=== PATIENT | female | born 1930 | race Caucasian/White ===

== ENCOUNTER 2017-01-21 08:32 | Inpatient (IN) | payer OTHER, MEDICARE ==
[~2017-01-21] VITALS: Ht 165.1 cm; Wt 63.5 kg
[~2017-01-21 08:32] MED LIST: AMLODIPINE BESYL5 M1 PO; ASPIRIN EC81 M1 PO; AUGMENTIN 875-1 EACH PO; BYSTOLIC10 M1 PO; CARAFATE1 G1 PO; CRESTOR10 M1 PO; FERROUS SULFAT325 M1 PO; HYDRALAZINE10 MG PO; HYDRODIURIL 2525 MG PO; LISINOPRIL30 MG PO; LOSARTAN POTASS25 M1 PO; METOPROLOL TART50 M1 PO; NORVASC 10MG10 MG PO; OMEPRAZOLE20 M3 PO; OMEPRAZOLE40 M1 PO; OXYBUTYNIN CHLOR5 M2; PRANDIN PO; PRANDIN0.5 MG PO; REPAGLINIDE1 M1 PO; VITAMIN B-121000 MC3 PO; VITAMIN D31000 UNI2 PO
--- NOTE | 2017-01-21 08:41 | ED GI/GU/ABDOMINAL COMPLAINT ---
History of Present Illness General Chief Complaint: Abdominal Pain/Flank Pain Stated Complaint: ABD PAIN X 3DAYS Source: patient, family, old records Exam Limitations: no limitations Vital Signs & Intake/Output Vital Signs & Intake/Output Vital Signs Date Time Temp Pulse Resp B/P Pulse O2 O2 Flow FiO2 Ox Delivery Rate 01/21 1430 97.5 67 18 168/58 98 Room Air 01/21 1358 97.0 63 20 160/80 100 Room Air 01/21 1303 64 160/80 01/21 1240 54 20 180/80 01/21 1240 53 180/80 01/21 1157 96.4 66 20 190/90 100 Room Air 01/21 1133 190/90 01/21 1053 210/100 01/21 1030 97.0 59 20 210/100 01/21 1009 97.0 59 20 210/100 100 Room Air 01/21 0900 98 Room Air 01/21 0835 97.6 69 18 189/80 97 Room Air Allergies Coded Allergies: NO KNOWN ALLERGIES (08/25/16) Reconcile Medications Amlodipine Besylate 5 MG TABLET 1 TAB PO DAILY HEART (Reported) Losartan Potassium 25 MG TABLET 1 TAB PO DAILY HEART (Reported) Nebivolol HCl (Bystolic) 10 MG TABLET 1 TAB PO DAILY HEART (Reported) Omeprazole 40 MG CAPSULE.DR 1 TAB PO BID Stomach Ulcer Oxybutynin Chloride 5 MG TABLET 1 TAB PO BID bladder (Reported) Repaglinide 1 MG TABLET 1 TAB PO DAILY DM (Reported) Sucralfate (Carafate) 1 GRAM TABLET 1,000 MG PO 4 TIMES/DAY Stomach ulcer Please take one tablet 30 minutes after your breakfast, lunch and dinner. Take one tablet at bed time. You can Mix this tablet with 8 oz H2O and disolve. Triage Note: 86 Y/O FEMALE C/O MID ABDOMINAL/EPIGASTRIC PAIN SINCE SATURDAY. WAS ADMITTED APPROX 3 WEEKS GO FOR SAME BUT FAMILY UNSURE OF EXACT DIAGNOSIS; "SHE HAD A FOLLOW UP AND WAS FINE". PT DENIES N/V BUT REPORTS DECREASED APPETITE/PO INTAKE. STATES SHE HAS BEEN TAKING THE PRESCRIBED MEDICATIONS BUT "THEY ARENT HELPING". FAMILY STATES PT WAS DIAGNOSED WITH ULCER. PT STATES "THIS IS NOT AN ULCER". Triage Nurses Notes Reviewed? yes ? N Is pt currently ? No Onset: Gradual Duration: day(s): (3) Timing: recent history Quality/Severity: moderate Location: epigastric Radiation: back Activities at Onset: none Prior Abdominal Problems: similar symptoms Past Sexual History: Unobtainable at this time No Modifying Factors: none Modifying Factors: Worsens With: movement. Associated Symptoms: abdominal pain HPI: Patient is an 86-year-old female with history of peptic ulcer disease, diabetes presenting to the emergency department with chief complaint of epigastric pain as been constant for the past 3 days. She reports history of similar symptoms recently, was admitted to the hospital in October for the same, had an endoscopy which revealed inflammation. She was put on medications that seemed to help. She was doing well for a few weeks after discharge and then the son reports that she's been in pain since mid to late November. Pain progressively getting worse. Pain constant over the past 3 days. Denies any shortness of breath or chest pain. No palpitations. Pain is sharp and stabbing in nature and radiates to the back. Feels similar to pain she had at previous admission. Has been taking intermittent ibuprofen which does not help. No nausea or vomiting. Denies any diarrhea. No urinary frequency or urgency or dysuria. Denies fevers or chills. Nothing seems to make the pain better. (IVÁN GLYNN,FOREST) Past History Travel History Traveled to [place] past 21 day No Medical History Any Pertinent Medical History? see below for history Neurological: NONE EENT: NONE Cardiovascular: hypertension, PAD, post L fempop bypass 2014 at [facility] Respiratory: NONE (by CT (denies smoking)) Gastrointestinal: peptic ulcer disease, ONLY HAS 1/3 OF STOMACH chronic pancreatic cysts Hepatic: post CCKY Renal: chronic kidney disease Musculoskeletal: osteoporosis Psychiatric: anxiety, PTSD Endocrine: diabetes, osteoporosis, vitamin D deficiency Blood Disorders: anemia (MGUS) Cancer(s): NONE TACTICAL/MOBILE WATCH OFFICER/Reproductive: NONE History of MRSA: No History of VRE: No History of CDIFF: No Surgical History Surgical History: cholecystectomy (age 24- [place]), , age 23- partial gastrectomy for PUD in [place] (awake during procedure) 2014- Left fempop at [facility] RLQ exploration in [place] for "infx" (AP left intact) Psychosocial History Who do you live with Patient/Self Services at Home None What is your primary language Peruvian Tobacco Use: Never used Family History Family History, If Any: MOTHER (possibly TACTICAL/MOBILE WATCH OFFICER-related). , Age 46; Cause: Unknown cause of morbidity or mortality. FATHER (related to injuries from WWII.). , Age 57; Cause: Trauma. Hx Contributory? No (FOREST AMAYA) Review of Systems Review of Systems Constitutional: Reports: no symptoms. Comments Review of systems: See HPI, All other systems negative. Constitutional, no chills fever or weight loss HEENT: No visual changes no sore throat no congestion Cardiovascular: No chest pain ,palpitation , orthopnea or ankle swelling Skin, no jaundice no rashes Respiratory: No dyspnea cough sputum or hemoptysis GI: No nausea no vomiting : No dysuria No hematuria Muscle skeletal: no neck pain, Neurologic: No numbness no confusion NO HOGAN Psych: No stress anxiety or depression,. Heme/endocrine: No bruising no bleeding no polyuria or polydipsia Immunology: No splenectomy or history of AIDS (FOREST AMAYA) Physical Exam Physical Exam General Appearance: well developed/nourished, no apparent distress, alert, awake , uncomfortable Gastrointestinal: normal bowel sounds, guarding, tenderness, several old surgical scars noted Comments: Well-developed well-nourished person in no acute distress but appears uncomfortable HEENT: Pupils equally round and reactive to light and accommodation. Nose is atraumatic. Pharynx normal. No swelling or edema. Neck: NORMAL INSPECTION Back: Nontender, no CVA tenderness. Full range of motion Cardiovascular: Regular rate and rhythms no murmurs rubs or gallops, normal JVP Respiratory: Chest nontender. No respiratory distress.breath sounds clear to auscultation bilaterally Abdomen: Soft, TENDER TO PALPATION IN EPIGASTRIC REGION, R/L UPPER QUADRANTS, nondistended, no appreciable organomegaly. Normal bowel sounds. No ascites. Positive guarding in the epigastric and right upper quadrant area. Extremity: No edema Neuro: Alert oriented x3, CN 2- 12 INTACT Skin: No appreciable rash on exposed skin, skin is warm and dry. Psych: Mood and affect is normal, memory and judgment is normal. Core Measures ACS in differential dx? Yes Severe Sepsis Present: No Septic Shock Present: No (FOREST AMAYA) Progress Differential Diagnosis: gastritis, hepatitis, hernia, pancreatitis, sbo, HYPERTENSIVE URGENCY, MEDICATION NONCOMPLIANCE, GASTRITIS Plan of Care: Orders Procedure Date/time Status Consistent Carbohydrate 2 01/22 B Active CBC WITHOUT DIFFERENTIAL 01/22 0600 Active BASIC ELECTROLYTES PLUS BUN&CR 01/22 0600 Active Heart Healthy Diet 01/21 D Complete Code Status 01/21 1606 Active Pathway - chart 01/21 1452 Active PT Evaluate & Treat 01/21 1451 Active Pathway - chart 01/21 1451 Active House Staff 01/21 1451 Active Vital Signs 01/21 1437 Active Teach/Educate 01/21 1437 Active Pain Treatment and Response 01/21 1437 Active Nutritional Intake, Monitor 01/21 1437 Active Isolation 01/21 1437 Active Intake & Output 01/21 1437 Active Patient Care Conference 01/21 1437 Active Activity/Ambulation 01/21 1437 Active Admit to inpatient 01/21 1304 Active Vital Signs 01/21 1304 Active Code Status 01/21 1304 Complete Telemetry/Casing Mixer 01/21 1255 Active Patient Data 01/21 1252 Active Add-on Test (ER Only) 01/21 1251 Active Add-on Test (ER Only) 01/21 1151 Active CULTURE,URINE 01/21 1030 Active Intake & Output 01/21 0919 Active LACTIC ACID 01/21 0855 Complete URINALYSIS 01/21 0842 Complete TROPONIN LEVEL 01/21 0842 Complete LIPASE 01/21 0842 Complete COMPREHENSIVE METABOLIC PANEL 01/21 0842 Complete CBC WITHOUT DIFFERENTIAL 01/21 0842 Complete AMYLASE 01/21 0842 Complete EKG 01/21 0842 Active VTE Mechanical Prophylaxis 01/21 UNK Active Vital Signs 01/21 UNK Active Intake & Output 01/21 UNK Active PHYSICIAN CONSULT 01/21 UNK Active Current Medications Sig/Andrey Start time Last Medication Dose Stop Time Status Admin Losartan Potassium 25 MG DAILY 01/22 1000 AC (Cozaar) Heparin Sodium 5,000 UNIT Q8 01/21 2200 AC (Porcine) Omeprazole 40 MG BID 01/21 2200 AC (Prilosec) Oxybutynin Chloride 5 MG BID 01/21 2200 AC (Ditropan) Sucralfate 1,000 MG 4 TIMES/DAY 01/21 1800 AC (Carafate) Insulin Aspart 0 TIDAC 01/21 1700 AC (NovoLOG) Morphine Sulfate 2 MG Q6P PRN 01/21 1545 AC (Morphine) Trimethobenzamide HCl 200 MG TID PRN 01/21 1545 AC (Tigan) Nebivolol 10 MG DAILY 01/21 1534 AC (Bystolic) Amlodipine Besylate 5 MG DAILY 01/21 1533 AC (Norvasc) Acetaminophen 650 MG Q6P PRN 01/21 1500 AC (Tylenol) Oxycodone HCl 10 MG Q6P PRN 01/21 1500 AC (Roxicodone) Laboratory Tests 01/21/17 1030: Urine Color YEL, Urine Clarity CLEAR, Urine pH 6.0, Ur Specific [place] 1.015, Urine Protein 100 H, Urine Ketones NEG, Urine Nitrite POS H, Urine Bilirubin NEG, Urine Urobilinogen 0.2, Ur Leukocyte Esterase NEG, Ur Microscopic SEDIMENT EXAMINED, Urine RBC RARE, Urine WBC RARE, Ur Epithelial Cells FEW, Urine Bacteria FEW H, Urine Mucus MOD H, Urine Hemoglobin TRACE-INTACT, Urine Glucose NEG 01/21/17 0855: Anion Gap 14, Estimated GFR 25 L, BUN/Creatinine Ratio 16.8, Glucose 170 H, Lactic Acid 0.9, Calcium 8.6, Total Bilirubin 0.4, AST 13 L, ALT 26, Alkaline Phosphatase 135 H, Troponin I < 0.01, Total Protein 6.2 L, Albumin 3.7, Globulin 2.5, Albumin/Globulin Ratio 1.5, Amylase 68, Lipase 75, CBC w Diff NO MAN DIFF REQ, RBC 3.28 L, MCV 87.9, MCH 28.5, RDW 16.6 H, MPV 8.9, Gran % 79.5 H, Lymphocytes % 17.1 L, Monocytes % 3.0, Eosinophils % 0.1, Basophils % 0.3, Absolute Granulocytes 6.9 H, Absolute Lymphocytes 1.5, Absolute Monocytes 0.3, Absolute Eosinophils 0, Absolute Basophils 0, PUBS MCHC 32.4 L Microbiology 01/21 1030 URINE ROUT: Urine Culture - RECD Diagnostic Imaging: Viewed by Me: CT Scan. Discussed w/RAD: CT Scan. Radiology Impression: PATIENT: KWESI CARMONA PRESENT AGE: 86 PATIENT ACCOUNT NO: [id number] : [birth year] LOCATION: [facility] ORDERING PHYSICIAN: FOREST GLYNN SERVICE DATE: 01/21/17 EXAM TYPE: CAT - CT ABD & PELVIS W/O IV CONTRAS EXAMINATION: CT ABDOMEN AND PELVIS WITHOUT CONTRAST CLINICAL INFORMATION: Rule out cholecystitis. Right upper quadrant pain. COMPARISON: CT abdomen pelvis dated 10/10/2016. TECHNIQUE: Multidetector volumetric imaging was performed from the superior aspect of the liver through the pubic symphysis. Sagittal and coronal reformatted images were obtained on the technologist's workstation. DLP: 250.53 mGy-cm FINDINGS: LUNG BASES: The heart is normal in size. There is no pericardial effusion. There is a 3 mm nodule within the right lower lobe. LIVER, GALLBLADDER, AND BILIARY TREE: The unenhanced liver is normal in size. There is chronic dilation of the intrahepatic and extrahepatic bile ducts. There is chronic pneumobilia. The common bile duct measures up to 1 cm in diameter. The gallbladder is not visualized. PANCREAS: There is severe chronic atrophy of the pancreas. There is a 1 cm soft tissue lesion within the anterior peripancreatic region, stable. SPLEEN: Unremarkable. ADRENAL GLANDS: Stable right adrenal adenoma. KIDNEYS AND URETERS: The unenhanced kidneys are normal in size. There is no hydronephrosis or perinephric stranding. BLADDER: The urinary bladder is moderately distended. GASTROINTESTINAL TRACT: There are surgical changes status post gastrojejunal anastomosis. Small bowel and colon demonstrate normal caliber and normal wall thickness. There is abundant fecal material throughout the colon. The appendix is unremarkable. ABDOMINAL WALL: No significant hernia is appreciated. LYMPH NODES: No lymphadenopathy. VASCULAR: Extensive vascular calcification. PELVIC VISCERA: No pelvic mass. OSSEOUS STRUCTURES: The osseous structures are diffusely demineralized. There are moderate degenerative changes of the thoracic spine and lumbar spine. There is minimal anterolisthesis of L4 in relation to L5. Large Schmorl's node at T12 is stable. IMPRESSION: When compared with prior examination dated 10/10/2016 there has been no significant change in the appearance of the abdomen or pelvis. Common bile duct and intrahepatic ducts are chronically dilated and there is chronic pneumobilia. The gallbladder is not definitely identified. Correlate with surgical history. DICTATED BY: NEELIMA MICHELLE MD DATE/TIME DICTATED:01/21/171024 COATING OPERATOR:LORI DATE/TIME TRANSCRIBED:01/21/171024 CONFIDENTIAL, DO NOT COPY WITHOUT APPROPRIATE AUTHORIZATION. <Electronically signed in Other Vendor System> SIGNED BY: NEELIMA MICHELLE MD 01/21/17 1052 Initial ED EKG: SINUS AT A 52 BPM, ATRIAL PREMATURE COMPLEX Comments: 01/21/2017 9:55:02 AM patient is afebrile, appears uncomfortable with epigastric pain reproducible on exam. Patient medicated with IV morphine on arrival. This could be exacerbation of peptic ulcer disease. Cannot exclude AAA, pancreatitis. CBC, CMP, lactic acid, amylase and lipase ordered. EKG performed. 01/21/2017 10:41:43 PM patient having some relief after IV morphine. Still appears uncomfortable. No elevation in white blood cell count. Patient is slightly acidotic. Still receiving IV fluids. Patient medicated with Tylenol. Blood pressure still elevated. EKG is sinus rhythm. 01/21/2017 1:22:13 PM patient informed of all lab work results and imaging study results. Family informed the patient will be admitted for hypertensive urgency and intractable abdominal pain. She'll likely need GI consultation. Unsafe for discharge at this time. She was seen and evaluated by Dr. RODRIGUEZ. (FOREST AMAYA) Departure Departure Time of Disposition: 1249 Disposition: STILL A PATIENT Condition: Stable Clinical Impression Primary Impression: Hypertensive urgency Secondary Impressions: Intractable abdominal pain Ruled Out Impressions: Abdominal pain Referrals: ANTONIO CLARK MD (PCP/Family) Departure Forms: Customer Survey General Discharge Information Admission Note Spoke With: LUCA ANN MD Documentation of Exam: Documentation of any treatments & extenuating circumstances including Concerns Regarding Discharge (functional status, medication knowledge or non-compliance, living conditions, etc.) that warrant an admission rather than observation: Patient requiring IV antihypertensive medication, will require GI consultation secondary to intractable abdominal pain and evidence of ductal dilation on CT scan which appears to be chronic compared to previous CT scan, IV pain medications. Discharged at this time would be medically harmful. Patient is also slightly acidotic, serial labs. (FOREST AMAYA) Admission Note Documentation of Exam: Documentation of any treatments & extenuating circumstances including Concerns Regarding Discharge (functional status, medication knowledge or non-compliance, living conditions, etc.) that warrant an admission rather than observation: 01/21/17 I've seen and personally examined the patient and I agree with the PAs evaluation. She has severe intractable abdominal pain. She has abdominal pain requiring IV morphine for control. She also has a severe elevation in her blood pressure. She will be admitted for hypertensive urgency intractable abdominal pain to the telemetry service. PA/LINE TECHNICIAN Co-Sign Statement Statement: ED Attending supervision documentation- [X] I saw and evaluated the patient. I have also reviewed all the pertinent lab results and diagnostic results. I agree with the findings and the plan of care as documented in the PA's/LINE TECHNICIAN's documentation. [] I have reviewed the ED Record and agree with the PA's/LINE TECHNICIAN's documentation. [] Additions or exceptions (if any) to the PAs/LINE TECHNICIAN's note and plan are summarized below: [] (EHSAN RODRIGUEZ DO) Critical Care Note Critical Care Note Critical Care Time: 30-74 min (FOREST AMAYA)
[2017-01-21 09:08] LABS: ABSOLUTE BASOPHIL COUNT 0 /CUMM (0.0-0.2); ABSOLUTE EOSINOPHIL COUNT 0 /CUMM (0.0-0.7); ABSOLUTE GRANULOCYTE CT 6.9 /CUMM (1.4-6.5); ABSOLUTE LYMPH COUNT 1.5 /CUMM (1.2-3.4); ABSOLUTE MONOCYTE COUNT 0.3 /CUMM (0.10-0.60); BASOPHIL % 0.3 % (0.0-2.0); EOSINOPHIL % 0.1 % (0-5); GRANULOCYTE % 79.5 % (42.2-75.2); HEMATOCRIT 28.8 % (37-47); MEAN CORPUSCULAR HGB 28.5 PG (27.0-31.0); MEAN CORPUSCULAR HGB CONC 32.4 G/DL (33.0-37.0); MEAN CORPUSCULAR VOLUME 87.9 FL (81.0-99.0); MEAN PLATELET VOLUME 8.9 FL (7.4-10.4); PLATELET COUNT 208 /CUMM (130-400); RBC DISTRIBUTION WIDTH 16.6 % (11.5-14.5); RED BLOOD CELL CT 3.28 /CUMM (4.20-5.40); WHITE BLOOD CELL COUNT 8.6 /CUMM (4.8-10.8)
[2017-01-21] MEDS ORDERED: OXYBUTYNIN CHLOR5 M2 PO (09:19)
--- NOTE | 2017-01-21 10:52 | CT SCAN REPORT ---
EXAMINATION: CT ABDOMEN AND PELVIS WITHOUT CONTRAST CLINICAL INFORMATION: Rule out cholecystitis. Right upper quadrant pain. COMPARISON: CT abdomen pelvis dated 10/10/2016. TECHNIQUE: Multidetector volumetric imaging was performed from the superior aspect of the liver through the pubic symphysis. Sagittal and coronal reformatted images were obtained on the technologist's workstation. DLP: 250.53 mGy-cm FINDINGS: LUNG BASES: The heart is normal in size. There is no pericardial effusion. There is a 3 mm nodule within the right lower lobe. LIVER, GALLBLADDER, AND BILIARY TREE: The unenhanced liver is normal in size. There is chronic dilation of the intrahepatic and extrahepatic bile ducts. There is chronic pneumobilia. The common bile duct measures up to 1 cm in diameter. The gallbladder is not visualized. PANCREAS: There is severe chronic atrophy of the pancreas. There is a 1 cm soft tissue lesion within the anterior peripancreatic region, stable. SPLEEN: Unremarkable. ADRENAL GLANDS: Stable right adrenal adenoma. KIDNEYS AND URETERS: The unenhanced kidneys are normal in size. There is no hydronephrosis or perinephric stranding. BLADDER: The urinary bladder is moderately distended. GASTROINTESTINAL TRACT: There are surgical changes status post gastrojejunal anastomosis. Small bowel and colon demonstrate normal caliber and normal wall thickness. There is abundant fecal material throughout the colon. The appendix is unremarkable. ABDOMINAL WALL: No significant hernia is appreciated. LYMPH NODES: No lymphadenopathy. VASCULAR: Extensive vascular calcification. PELVIC VISCERA: No pelvic mass. OSSEOUS STRUCTURES: The osseous structures are diffusely demineralized. There are moderate degenerative changes of the thoracic spine and lumbar spine. There is minimal anterolisthesis of L4 in relation to L5. Large Schmorl's node at T12 is stable. IMPRESSION: When compared with prior examination dated 10/10/2016 there has been no significant change in the appearance of the abdomen or pelvis. Common bile duct and intrahepatic ducts are chronically dilated and there is chronic pneumobilia. The gallbladder is not definitely identified. Correlate with surgical history.
--- NOTE | 2017-01-21 13:14 | History & Physical ---
REHANA KIM 01/21/17 1314: General Information and HPI MD Statement: I have seen and personally examined KWESI CARMONA and documented this H&P. The patient is a 86 year old F who presented with a patient stated chief complaint of [abdominal pain]. Source of Information: patient Exam Limitations: no limitations History of Present Illness: 86-year-old female with a past medical history of hypertension, GERD, peripheral arterial disease status post left femoral popliteal bypass in 2014 at [facility], peptic ulcer disease status post partial gastrectomy for PUD in [place], chronic pancreatic cysts, CKD stage IV most likely secondary to diabetic nephropathy, osteoporosis, [id number] diabetes, anxiety, PTSD presented to the ED with chief complaints of abdominal pain. Of note she was discharged from the hospital back in September when she had presented with similar complaints and underwent an endoscopy which showed gastroenteric mucosa with smooth muscle hyperplasia, fibrosis and reactive features, ulcerated gastroenteric anastomotic site at 46 cm with mild chronic gastritis in the gastric remnant. She states that she followed up with Dr. Benoit in November and was completely fine however a few days later she started to experience epigastric pain that continued to gradually worsened. She called his office and was given an appointment for February. The patient states that her pain is gradually worsened over the past month and a half or so to the point that he was having increased difficulty tolerating food yesterday which is why she decided to come to the ED today. She denies any nausea, vomiting and states that the abdominal pain is in no way associated with intake of 1. She denies any fever, chills, sore throat, any recent history of sick contact, diarrhea, constipation, hematemesis, and states that her pain which is a 10 out of 10 in his burning in nature and feels as if there is a ring in her epigastric area. She did try to take Aleve to help with her pain without any avail. Of note she lives by herself and is pretty much independent in terms of her ADLs and IADLs. She states that is also started to experience increasing amount of weakness after the pain started she has been not able to eat that well for the past 1 day now. Allergies/Medications Allergies: Coded Allergies: NO KNOWN ALLERGIES (08/25/16) Home Med list Amlodipine Besylate 5 MG TABLET 1 TAB PO DAILY HEART (Reported) Losartan Potassium 25 MG TABLET 1 TAB PO DAILY HEART (Reported) Nebivolol HCl (Bystolic) 10 MG TABLET 1 TAB PO DAILY HEART (Reported) Omeprazole 40 MG CAPSULE.DR 1 TAB PO BID Stomach Ulcer Oxybutynin Chloride 5 MG TABLET 1 TAB PO BID bladder (Reported) Repaglinide 1 MG TABLET 1 TAB PO DAILY DM (Reported) Sucralfate (Carafate) 1 GRAM TABLET 1,000 MG PO 4 TIMES/DAY Stomach ulcer Please take one tablet 30 minutes after your breakfast, lunch and dinner. Take one tablet at bed time. You can Mix this tablet with 8 oz H2O and disolve. Compliance With Home Meds: GOOD Past History Travel History Traveled to [facility] past 21 day No Medical History Neurological: NONE EENT: NONE Cardiovascular: hypertension, PAD, post L fempop bypass 2014 at [facility] Respiratory: NONE (by CT (denies smoking)) Gastrointestinal: peptic ulcer disease, ONLY HAS 1/3 OF STOMACH chronic pancreatic cysts Hepatic: post CCKY Renal: chronic kidney disease Musculoskeletal: osteoporosis Psychiatric: anxiety, PTSD Endocrine: diabetes, osteoporosis, vitamin D deficiency Blood Disorders: anemia (MGUS) Cancer(s): NONE CREATIVE RECRUITER/Reproductive: NONE History of MRSA: No History of VRE: No History of CDIFF: No Surgical History Surgical History: cholecystectomy (age 24- [place]), , age 23- partial gastrectomy for PUD in [place] (awake during procedure) 2014- Left fempop at [facility] RLQ exploration in [place] for "infx" (AP left intact) Past Family/Social History Family History Relations & Conditions if any MOTHER (possibly CREATIVE RECRUITER-related). , Age 46; Cause: Unknown cause of morbidity or mortality. FATHER (related to injuries from WWII.). , Age 57; Cause: Trauma. Psychosocial History Who Do You Live With? self Services at Home: None Primary Language: Macanese, Tajik Living Will? no Power of Real Estate Transaction Coordinator/HCP? no Functional Ability ADLs Independent: dressing, eating, toileting, bathing. Ambulation: independent IADLs Independent: shopping, housework, finances, food prep, telephone, transportation , medication admin. Sexual History Past Sexual History Unobtainable at this time Review of Systems Review of Systems Constitutional: Reports: weakness. Denies: chills, fever. EENTM: Denies: visual changes. Cardiovascular: Denies: chest pain, edema, orthopena, palpitations, peripheral edema. Respiratory: Denies: cough, hemoptysis, short of breath, sputum production, stridor, wheezing. GI: Reports: abdominal pain, nausea. Denies: bloating, constipation, diarrhea, bloody stool, changes in stool, vomiting. Genitourinary: Denies: discharge, hematuria. Musculoskeletal: Reports: no symptoms. Skin: Reports: no symptoms. Neurological/Psychological: Reports: weakness. Denies: headache, numbness, tingling, tremors, unable to move lower ext, unable to move upper ext. Hematologic/Endocrine: Reports: no symptoms. Exam & Diagnostic Data Last 24 Hrs of Vital Signs/I&O Vital Signs Date Time Temp Pulse Resp B/P Pulse O2 O2 Flow FiO2 Ox Delivery Rate 01/21 1430 97.5 67 18 168/58 98 Room Air 01/21 1358 97.0 63 20 160/80 100 Room Air 01/21 1303 64 160/80 01/21 1240 54 20 180/80 01/21 1240 53 180/80 01/21 1157 96.4 66 20 190/90 100 Room Air 01/21 1133 190/90 01/21 1053 210/100 01/21 1030 97.0 59 20 210/100 01/21 1009 97.0 59 20 210/100 100 Room Air 01/21 0900 98 Room Air 01/21 0835 97.6 69 18 189/80 97 Room Air Intake & Output 01/21 1600 01/21 0800 01/21 0000 Intake Total 1000 Output Total 900 Balance 100 Intake, IV 1000 Output, Urine 900 Patient 140 lb Weight Physical Exam General Appearance Alert, Oriented X3, Cooperative, Mild Distress HEENT Atraumatic, PERRLA, EOMI, dry mucous membranes Neck Supple, No JVD, No thryomegaly, +2 Carotid Pulse wo Bruit, No LAD Cardiovascular Regular Rate, Normal S1, Normal S2, No Murmurs Lungs Clear to Auscultation, Normal Air Movement Abdomen Normal Bowel Sounds, Soft, No Tenderness, has midline laprotomy scar Neurological Normal Speech, Strength at 5/5 X4 Ext, Normal Tone, Sensation Intact, Cranial Nerves 3-12 NL, Reflexes 2+ Extremities No Clubbing, No Cyanosis, No Edema, Normal Pulses, No Tenderness/ Swelling Last 24 Hrs of Labs/Zeferino: Laboratory Tests 01/21/17 1030: Urine Color YEL, Urine Clarity CLEAR, Urine pH 6.0, Ur Specific Roark 1.015, Urine Protein 100 H, Urine Ketones NEG, Urine Nitrite POS H, Urine Bilirubin NEG, Urine Urobilinogen 0.2, Ur Leukocyte Esterase NEG, Ur Microscopic SEDIMENT EXAMINED, Urine RBC RARE, Urine WBC RARE, Ur Epithelial Cells FEW, Urine Bacteria FEW H, Urine Mucus MOD H, Urine Hemoglobin TRACE-INTACT, Urine Glucose NEG 01/21/17 0855: Anion Gap 14, Estimated GFR 25 L, BUN/Creatinine Ratio 16.8, Glucose 170 H, Lactic Acid 0.9, Calcium 8.6, Total Bilirubin 0.4, AST 13 L, ALT 26, Alkaline Phosphatase 135 H, Troponin I < 0.01, Total Protein 6.2 L, Albumin 3.7, Globulin 2.5, Albumin/Globulin Ratio 1.5, Amylase 68, Lipase 75, CBC w Diff NO MAN DIFF REQ, RBC 3.28 L, MCV 87.9, MCH 28.5, RDW 16.6 H, MPV 8.9, Gran % 79.5 H, Lymphocytes % 17.1 L, Monocytes % 3.0, Eosinophils % 0.1, Basophils % 0.3, Absolute Granulocytes 6.9 H, Absolute Lymphocytes 1.5, Absolute Monocytes 0.3, Absolute Eosinophils 0, Absolute Basophils 0, PUBS MCHC 32.4 L Microbiology 01/21 1030 URINE ROUT: Urine Culture - RECD Diagnostic Data EKG Results NSR, 52, PACs, 1st degree AV block, non-specific ST-T changes, poor R-wave progression CXR Results FINDINGS: The cardiac silhouette is top normal in size. There is uncoiling of the thoracic aorta. The thoracic aorta is mildly calcified. There are increased interstitial markings throughout both lungs, which has progressed since the prior study. No focal consolidation, pneumothorax or pleural effusion. IMPRESSION: Uncoiling of the thoracic aorta. Cardiac silhouette is top normal in size. Increased interstitial markings compared with prior examination. Other Results SERVICE DATE: 01/21/17 EXAM TYPE: CAT - CT ABD & PELVIS W/O IV CONTRAS FINDINGS: LUNG BASES: The heart is normal in size. There is no pericardial effusion. There is a 3 mm nodule within the right lower lobe. LIVER, GALLBLADDER, AND BILIARY TREE: The unenhanced liver is normal in size. There is chronic dilation of the intrahepatic and extrahepatic bile ducts. There is chronic pneumobilia. The common bile duct measures up to 1 cm in diameter. The gallbladder is not visualized. PANCREAS: There is severe chronic atrophy of the pancreas. There is a 1 cm soft tissue lesion within the anterior peripancreatic region, stable. SPLEEN: Unremarkable. ADRENAL GLANDS: Stable right adrenal adenoma. KIDNEYS AND URETERS: The unenhanced kidneys are normal in size. There is no hydronephrosis or perinephric stranding. BLADDER: The urinary bladder is moderately distended. GASTROINTESTINAL TRACT: There are surgical changes status post gastrojejunal anastomosis. Small bowel and colon demonstrate normal caliber and normal wall thickness. There is abundant fecal material throughout the colon. The appendix is unremarkable. ABDOMINAL WALL: No significant hernia is appreciated. LYMPH NODES: No lymphadenopathy. VASCULAR: Extensive vascular calcification. PELVIC VISCERA: No pelvic mass. OSSEOUS STRUCTURES: The osseous structures are diffusely demineralized. There are moderate degenerative changes of the thoracic spine and lumbar spine. There is minimal anterolisthesis of L4 in relation to L5. Large Schmorl's node at T12 is stable. IMPRESSION: When compared with prior examination dated 10/10/2016 there has been no significant change in the appearance of the abdomen or pelvis. Common bile duct and intrahepatic ducts are chronically dilated and there is chronic pneumobilia. The gallbladder is not definitely identified. Correlate with surgical history. Assessment/Plan Assessment: 86-year-old female with a past medical history of hypertension, GERD, peripheral arterial disease status post left femoral popliteal bypass in 2014 at the [facility], peptic ulcer disease status post partial gastrectomy for PUD in [place], chronic pancreatic cysts, CKD, diabetes, osteoporosis, anxiety, PTSD, presents to the ED with chief complaint of abdominal pain. Vitals at the time of admission blood pressure 189/80, respiratory rate 18, pulse 69, afebrile saturating 97% on room air. On physical exam, she is alert and oriented 3 in no acute distress sitting comfortably in bed. HEENT revealed PERRLA, EOMI, dry mucous membranes. Examination of the neck did not reveal any JVD, no cervical lymphadenopathy. Cardiac exam revealed normal S1, S2, no murmurs appreciated. History exam is benign with chest clear to auscultation bilaterally. Abdominal exam is pertinent for a midline laparotomy scar, abdomen soft, nontender, nondistended with normal bowel sounds in all 4 quadrants. Examination of the lower extremities does not reveal any edema. Labs pertinent for an H&H of 9.4/28.8, white blood cell count of 8600, platelet count of 208,000. Serum chemistries revealed a sodium of 139, potassium of 3.7, bicarbonate of 16, anion gap 14, BUN 32 and a creatinine of 1.9 baseline creatinine runs around 2.0. Serum glucose elevated to 170, lactic acid of 0.9, LFTs pertinent for a normal total bili of 0.4, AST/ALT of and an alkaline phosphatase of 135. First set of troponin negative at less than 0.01. Serum amylase 68 and lipase 75. UA pertinent for moderately increased proteinuria, negative for ketones, positive for nitrite and negative for leukocyte Estrace it did have few bacteria and moderate amount of mucus. CT abdomen and pelvis showed no significant change in the appearance when compared to the CAT scan done in September 2016. CBD and intrahepatic ducts a chronically dilated and there is no chronic pneumobilia. Gallbladder is not identified. Last Echo: 07/25: Normal size left ventricle. Moderate concentric left ventricular hypertrophy. Normal left ventricular ejection fraction visually estimated at >60%. Trace tricuspid regurgitation. Trace pulmonic regurgitation. Upper GI endoscopy done on 10/11/2016 revealed: gastroenteric mucosa with smooth muscle hyperplasia, fibrosis and reactive features, ulcerated gastroenteric anastomotic site at 46 cm with mild chronic gastritis in the gastric remnant. In the ER she received a bolus of normal saline as a normal 1, 10 mg of IV labetalol and 10 mg of hydralazine IV 1 together with thousand milligrams of IV acetaminophen 1 as well as 2 mg of morphine 2. Assessment and Plan Admit patient to telemetry #Epigastric pain Most likely secondary to PUD, vs gastritis (endoscopy in Oct 2016 shows evidence ) vs pancreatitis (unlikely as lipase in WNL) Continue on protonix 40 mg twice a day, Sucralfate 1000mg 4 times a day Optimize pain control with morphine 2 mg every 4 hours when necessary IV, oxycodone 10 mg every 6 when necessary by mouth GI consult with Dr. Benoit has been placed, Dr. Doherty's conference manager. Follow up GI recommendations. Advance diet as tolerated Tigan every 8 hours as needed for nausea #Hypertensive emergency Most likely secondary to not having taken her blood pressure medications this morning Patient already received IV labetalol and hydralazine in the ER. Continue her on pain 5 mg daily, losartan 25 mg daily, Bystolic 10 mg by mouth daily #Urinary incontinence Continue on oxybutynin 5 mg twice a day when necessary #Plk-[id number] diabetes mellitus We will place her on NovoLog sliding scale given that she is in the hospital Holding her oral hypoglycemic agents Accu-Cheks 3 times a day #Generalized weakness Most likely secondary to decreased by mouth intake PT eval in a.m. -DVT prophylaxis Heparin 5000 international units 3 times a day subcutaneous Diet A consistent carb 2 CODE STATUS Full code As Ranked By This Provider Problem List: 1. Abdominal pain 2. Intractable abdominal pain 3. Hypertensive urgency 4. History of peptic ulcer disease Core Measures/Miscellaneous Acute Coronary Syndrome ACS Diagnosis: No Cerebrovascular Accident CVA/TIA Diagnosis: No Congestive Heart Failure CHF Diagnosis: No Venous Thromboembolism VTE Risk Factors: Age > 40 [facility] d/t: No contraindications No VTE Pharm Prophylaxis d/t: No contraindications VTE Diagnosis: No VTE Type: NONE VTE Confirmed by (Test): NONE Severe Sepsis Severe Sepsis Present: No Septic Shock Septic Shock Present: No Miscellaneous Documentation Attending Case Discussed With: LUCA ANN MD Primary Care Physician: ANTONIO CLARK MD Patient sees these Specialists Dr. Madie Benoit Level of Patient Care: Telemetry Consults Needed: Consulting Specialty: Gastroenterology Resident Review Statement Resident Statement: admitted by resident LUCA ANN MD 01/22/17 1024: Attending MD Review Statement Attending Statement Attending MD Statement: examined this patient, discuss w/resident/PA/PEN TESTER, agreed w/resident/PA/PEN TESTER, reviewed EMR data (avail)
--- NOTE | 2017-01-21 13:50 | RADIOLOGY REPORT ---
EXAMINATION: XR PORTABLE CHEST CLINICAL INFORMATION: Hypertensive urgency. Rule out cardiomegaly. COMPARISON: Chest radiograph dated 04/27/2014. TECHNIQUE: Portable AP view of the chest was obtained. FINDINGS: The cardiac silhouette is top normal in size. There is uncoiling of the thoracic aorta. The thoracic aorta is mildly calcified. There are increased interstitial markings throughout both lungs, which has progressed since the prior study. No focal consolidation, pneumothorax or pleural effusion. IMPRESSION: Uncoiling of the thoracic aorta. Cardiac silhouette is top normal in size. Increased interstitial markings compared with prior examination.
[2017-01-21 14:30] VITALS: BP 168/58
--- NOTE | 2017-01-21 16:03 | Cons- Gastroenterology ---
General Information and HPI Consulting Request Date of Consult: 01/21/17 Requested By: LUCA ANN MD Reason for Consult: Abdominal pain and abnormal ct scan Source of Information: patient, old records Exam Limitations: no limitations History of Present Illness: Ms. Cordova is an 86 year old male who presented to today with complaints of right upper quadrant abdominal pain. She has had intermittent RUQ abdominal pain that has been getting progressively worse over the past week. The pain is exacerbated by talking and it radiates to the back and around to the right flank , but not straight through to the back. The pain is described as stabbing, cramping and sometimes burning nature. The pain comes on randomly and is not exacerbated with eating. She has been able to tolerate a diet since the pain started without any significant nausea or vomiting. She is having normal bowel movements without any significant diarrhea, constipation, black tarry stool, or bright blood per rectum. She also denies pain elsewhere in her stomach. She underwent an endoscopic work up this past September for abdominal pain that he states was different than what she was having now. In the emergency room she was found to be hypertensive which is ultimately what she was admitted to telemetry for. Allergies/Medications Allergies: Coded Allergies: NO KNOWN ALLERGIES (08/25/16) Home Med List: Acetaminophen (Tylenol Extra Strength) 500 MG TABLET 1 TAB PO Q6-PRN PRN pain in abd Amlodipine Besylate 5 MG TABLET 1 TAB PO DAILY HEART (Reported) Losartan Potassium 25 MG TABLET 1 TAB PO DAILY HEART (Reported) Nebivolol HCl (Bystolic) 10 MG TABLET 1 TAB PO DAILY HEART (Reported) Omeprazole 40 MG CAPSULE.DR 1 TAB PO BID Stomach Ulcer Oxybutynin Chloride 5 MG TABLET 1 TAB PO BID bladder (Reported) Repaglinide 1 MG TABLET 1 TAB PO DAILY DM (Reported) Sucralfate (Carafate) 1 GRAM TABLET 1,000 MG PO 4 TIMES/DAY Stomach ulcer Please take one tablet 30 minutes after your breakfast, lunch and dinner. Take one tablet at bed time. You can Mix this tablet with 8 oz H2O and disolve. Current Medications: Current Medications Sig/Andrey Start time Last Medication Dose Route Stop Time Status Admin Acetaminophen 650 MG Q6P PRN 01/21 1500 AC PO Acetaminophen 0 .STK-MED ONE 01/21 1005 DC IV Acetaminophen 1,000 MG ONCE ONE 01/21 1000 DC 01/21 N/A 1 UNIT IV 01/21 1014 1009 Acetaminophen/ 1 TAB Q6P PRN 01/21 1500 AC Hydrocodone Bitart PO Amlodipine Besylate 5 MG DAILY 01/21 1533 UNVr PO Heparin Sodium 5,000 UNIT Q8 01/21 2200 AC (Porcine) SC Hydralazine HCl 0 .STK-MED ONE 01/21 1238 DC .ROUTE Hydralazine HCl 10 MG ONCE ONE 01/21 1230 DC 01/21 IV 01/21 1231 1240 Labetalol HCl 0 .STK-MED ONE 01/21 1020 DC IV Labetalol HCl 10 MG ONCE ONE 01/21 1015 DC 01/21 IV 01/21 1016 1030 Losartan Potassium 25 MG DAILY 01/22 1000 UNVr PO Morphine Sulfate 2 MG Q6P PRN 01/21 1545 UNVr IV Morphine Sulfate 0 .STK-MED ONE 01/21 1138 DC .ROUTE Morphine Sulfate 2 MG ONCE ONE 01/21 1130 DC 01/21 IV 01/21 1131 1140 Morphine Sulfate 2 MG ONCE ONE 01/21 0915 DC 01/21 IV 01/21 0916 0920 Morphine Sulfate 0 .STK-MED ONE 01/21 0915 DC .ROUTE Nebivolol 10 MG DAILY 01/21 1534 UNVr PO Omeprazole 40 MG BID 01/210 UNVr PO Oxybutynin Chloride 5 MG BID 01/21 2200 UNVr PO Oxycodone HCl 10 MG Q6P PRN 01/21 1500 AC PO Sodium Chloride 1,000 ML BOLUS ONE 01/21 1200 DC 01/21 IV 01/21 1359 1200 Sodium Chloride 1,000 ML BOLUS ONE 01/21 0930 DC 01/21 IV 01/21 1129 0920 Sucralfate 1,000 MG 4 TIMES/DAY 01/21 1535 UNVr PO Trimethobenzamide HCl 200 MG TID PRN 01/21 1545 UNVr IM Past History Travel History Traveled to [place] past 21 day No Medical History Neurological: NONE EENT: NONE Cardiovascular: hypertension, PAD, post L fempop bypass 2015 at [facility] Respiratory: NONE (by CT (denies smoking)) Gastrointestinal: peptic ulcer disease, ONLY HAS 1/3 OF STOMACH chronic pancreatic cysts Hepatic: post CCKY Renal: chronic kidney disease Musculoskeletal: osteoporosis Psychiatric: anxiety, PTSD Endocrine: diabetes, osteoporosis, vitamin D deficiency Blood Disorders: anemia (MGUS) Cancer(s): NONE CHILDREN'S ATTENDANT/Reproductive: NONE Surgical History Surgical History: cholecystectomy (age 24- [place]), , age 23- partial gastrectomy for PUD in [place] (awake during procedure) 2015- Left fempop at [facility] RLQ exploration in [place] for "infx" (AP left intact) Family History Relations & Conditions If Any: MOTHER (possibly CHILDREN'S ATTENDANT-related). , Age 46; Cause: Unknown cause of morbidity or mortality. FATHER (related to injuries from WWII.). , Age 57; Cause: Trauma. Psychosocial History Who Do You Live With? self Services at Home: None Primary Language: Georgian, Pashto Smoking Status: Never Smoked Living Will? no Power of Dramatic Director/HCP? no Functional Ability ADLs Independent: dressing, eating, toileting, bathing. Ambulation: independent IADLs Independent: shopping, housework, finances, food prep, telephone, transportation , medication admin. Review of Systems Review of Systems Constitutional: Reports: malaise, weakness. Denies: diaphoresis, fever. EENTM: Denies: no symptoms. Cardiovascular: Denies: chest pain, edema. Respiratory: Reports: short of breath. GI: Reports: see HPI. Genitourinary: Denies: no symptoms. Musculoskeletal: Reports: joint pain. Denies: joint swelling. Skin: Denies: no symptoms. Neurological/Psychological: Denies: no symptoms. Hematologic/Endocrine: Denies: no symptoms. Immunologic/Allergic: Denies: no symptoms. All Other Systems: Reviewed and Negative Exam & Diagnostic Data Vital Signs and I&O Vital Signs Date Time Temp Pulse Resp B/P Pulse O2 O2 Flow FiO2 Ox Delivery Rate 01/21 1430 97.5 67 18 168/58 98 Room Air 01/21 1358 97.0 63 20 160/80 100 Room Air 01/21 1303 64 160/80 01/21 1240 54 20 180/80 01/21 1240 53 180/80 01/21 1157 96.4 66 20 190/90 100 Room Air 01/21 1133 190/90 01/21 1053 210/100 01/21 1030 97.0 59 20 210/100 01/21 1009 97.0 59 20 210/100 100 Room Air 01/21 0900 98 Room Air 01/21 0835 97.6 69 18 189/80 97 Room Air Intake & Output 01/21 1600 01/21 0400 01/20 0400 01/19 1600 01/19 0400 Intake Total 1000 Output Total 900 Balance 100 Intake, IV 1000 Output, Urine 900 Patient 140 lb Weight Physical Exam General Appearance: no apparent distress, alert, awake, anxious, comfortable Head: atraumatic, normal appearance Eyes: Bilateral: normal appearance. Ears, Nose, Throat: normal pharynx, normal ENT inspection Neck: normal inspection, supple, full range of motion Respiratory: normal breath sounds, chest non-tender, no respiratory distress Cardiovascular: regular rate/rhythm Gastrointestinal: normal bowel sounds, soft, tenderness Rectal: deferred Back: normal inspection, normal range of motion Extremities: normal inspection, no edema Neurologic/Psych: no motor/sensory deficits, awake, alert, oriented x 3 Skin: intact, normal color Results Pertinent Lab Results: Laboratory Tests 01/21 01/21 1030 0855 Chemistry Sodium (137 - 145 mmol/L) 139 Potassium (3.5 - 5.1 mmol/L) 3.7 Chloride (98 - 107 mmol/L) 110 H Carbon Dioxide (22 - 30 mmol/L) 16 L Anion Gap (5 - 16) 14 BUN (7 - 17 mg/dL) 32 H Creatinine (0.5 - 1.0 mg/dL) 1.9 H Estimated GFR (>60 ml/min) 25 L BUN/Creatinine Ratio (7 - 25 %) 16.8 Glucose (65 - 99 mg/dL) 170 H Lactic Acid (0.7 - 2.1 mmol/L) 0.9 Calcium (8.4 - 10.2 mg/dL) 8.6 Total Bilirubin (0.2 - 1.3 mg/dL) 0.4 AST (14 - 36 U/L) 13 L ALT (9 - 52 U/L) 26 Alkaline Phosphatase (<127 U/L) 135 H Troponin I (< 0.11 ng/ml) < 0.01 Total Protein (6.3 - 8.2 g/dL) 6.2 L Albumin (3.5 - 5.0 g/dL) 3.7 Globulin (1.9 - 4.2 gm/dL) 2.5 Albumin/Globulin Ratio (1.1 - 2.2 %) 1.5 Amylase (30 - 110 U/L) 68 Lipase (23 - 300 U/L) 75 Hematology CBC w Diff NO MAN DIFF REQ WBC (4.8 - 10.8 /CUMM) 8.6 RBC (4.20 - 5.40 /CUMM) 3.28 L Hgb (12.0 - 16.0 G/DL) 9.4 L Hct (37 - 47 %) 28.8 L MCV (81.0 - 99.0 FL) 87.9 MCH (27.0 - 31.0 PG) 28.5 RDW (11.5 - 14.5 %) 16.6 H Plt Count (130 - 400 /CUMM) 208 MPV (7.4 - 10.4 FL) 8.9 Gran % (42.2 - 75.2 %) 79.5 H Lymphocytes % (20.5 - 51.1 %) 17.1 L Monocytes % (1.7 - 9.3 %) 3.0 Eosinophils % (0 - 5 %) 0.1 Basophils % (0.0 - 2.0 %) 0.3 Absolute Granulocytes (1.4 - 6.5 /CUMM) 6.9 H Absolute Lymphocytes (1.2 - 3.4 /CUMM) 1.5 Absolute Monocytes (0.10 - 0.60 /CUMM) 0.3 Absolute Eosinophils (0.0 - 0.7 /CUMM) 0 Absolute Basophils (0.0 - 0.2 /CUMM) 0 PUBS MCHC (33.0 - 37.0 G/DL) 32.4 L Urines Urine Color (YEL,AMB,STR) YEL Urine Clarity (CLEAR) CLEAR Urine pH (5.0 - 8.0) 6.0 Ur Specific [place] (1.001 - 1.035) 1.015 Urine Protein (NEG,<30 MG/DL) 100 H Urine Ketones (NEG) NEG Urine Nitrite (NEG) POS H Urine Bilirubin (NEG) NEG Urine Urobilinogen (0.1 - 1.0 EU/dl) 0.2 Ur Leukocyte Esterase (NEG) NEG Ur Microscopic SEDIMENT EXAMINED Urine RBC (0 - 5 /HPF) RARE Urine WBC (0 - 2 /HPF) RARE Ur Epithelial Cells (NONE,FEW) FEW Urine Bacteria (NEG/NONE) FEW H Urine Mucus (FEW,NONE) MOD H Urine Hemoglobin (NEG) TRACE-INTACT Urine Glucose (N MG/DL) NEG Imaging/Other Studies: EXAM TYPE: CAT - CT ABD & PELVIS W/O IV CONTRAS EXAMINATION: CT ABDOMEN AND PELVIS WITHOUT CONTRAST CLINICAL INFORMATION: Rule out cholecystitis. Right upper quadrant pain. COMPARISON: CT abdomen pelvis dated 10/10/2016. TECHNIQUE: Multidetector volumetric imaging was performed from the superior aspect of the liver through the pubic symphysis. Sagittal and coronal reformatted images were obtained on the technologist's workstation. DLP: 250.53 mGy-cm FINDINGS: LUNG BASES: The heart is normal in size. There is no pericardial effusion. There is a 3 mm nodule within the right lower lobe. LIVER, GALLBLADDER, AND BILIARY TREE: The unenhanced liver is normal in size. There is chronic dilation of the intrahepatic and extrahepatic bile ducts. There is chronic pneumobilia. The common bile duct measures up to 1 cm in diameter. The gallbladder is not visualized. PANCREAS: There is severe chronic atrophy of the pancreas. There is a 1 cm soft tissue lesion within the anterior peripancreatic region, stable. SPLEEN: Unremarkable. ADRENAL GLANDS: Stable right adrenal adenoma. KIDNEYS AND URETERS: The unenhanced kidneys are normal in size. There is no hydronephrosis or perinephric stranding. BLADDER: The urinary bladder is moderately distended. GASTROINTESTINAL TRACT: There are surgical changes status post gastrojejunal anastomosis. Small bowel and colon demonstrate normal caliber and normal wall thickness. There is abundant fecal material throughout the colon. The appendix is unremarkable. ABDOMINAL WALL: No significant hernia is appreciated. LYMPH NODES: No lymphadenopathy. VASCULAR: Extensive vascular calcification. PELVIC VISCERA: No pelvic mass. OSSEOUS STRUCTURES: The osseous structures are diffusely demineralized. There are moderate degenerative changes of the thoracic spine and lumbar spine. There is minimal anterolisthesis of L4 in relation to L5. Large Schmorl's node at T12 is stable. IMPRESSION: When compared with prior examination dated 10/10/2016 there has been no significant change in the appearance of the abdomen or pelvis. Common bile duct and intrahepatic ducts are chronically dilated and there is chronic pneumobilia. The gallbladder is not definitely identified. Correlate with surgical history. Assessment/Plan Assessment/Recommendations: Assessment: Ms. Cordova is an 86-year-old female with intermittent right upper quadrant abdominal pain of unclear etiology. Based on the location one may consider a biliary source of her symptoms, but her gallbladder has already been removed and her liver tests are normal. It is possible she may have had a retained gallstone that has since passed, but if her symptoms are from retained gallstones one would expect to see some liver test abnormalities such as an increased alkaline phosphatase or bilirubin. She has pneumobilia which suggests she has had a prior sphincterotomy or this may be related to her prior surgery for PUD sevearl many years ago. As she had a negative endoscopic work up this past September her symptoms are likely benign and I don't feel this needs to be repeated at this time. Considering her age it is also possible she may be having mesenteric ischemia, but as her pain isn't reliably associated with eating this is less likely to be the case. Recommendations: 1. Advance diet as tolearted. 2. Place on an oral PPI 3. Arrange for an MRA/MRCP which can be pursued as an outpatient if her symptoms resolve and she is able to tolerate an oral diet. 4. Analgesia as needed. I will continue to follow this patient and make further recommendations based on her clinical course and results of further imaging. Problem List: 1. Abdominal pain 2. Gastritis and duodenitis 3. Abnormal CT of the abdomen Copies To: AMBER CLAY,ANTONIO Abarca. Consult Acknowledgment - Thank you for your consult request.
[2017-01-22 01:07] VITALS: BP 158/52
--- NOTE | 2017-01-22 07:21 | PN- Housestaff ---
MAU CLAY,NEELA 01/22/17 0720: Subjective Follow-up For: Abdominal pain, probable gastritis Complaints: no complaints Tele-Events Since Last Visit: Normal sinus rhythm, first-degree heart block, [place] interval between 0.22 to 0.24, heart rate between 55-65 Subjective: Patient is seen and examined at the bedside. She was not having any active complaints. She denies of any nausea, vomiting, abdominal pain, constipation, diarrhea. She did not have any bowel movement but she is able to pass the flatus. Review of Systems Constitutional: Denies: no symptoms, see HPI, chills, diaphoresis, fever, malaise, weakness, unexplained weight loss. Cardiovascular: Denies: no symptoms. Respiratory: Denies: no symptoms. Gastrointestinal: Denies: no symptoms. Genitourinary: Denies: no symptoms. Musculoskeletal: Denies: no symptoms. Objective Last 24 Hrs of Vital Signs/I&O Vital Signs Date Time Temp Pulse Resp B/P Pulse O2 O2 Flow FiO2 Ox Delivery Rate 01/22 0924 62 152/50 01/22 0924 62 152/50 01/22 0923 62 152/50 01/22 0837 97.9 62 18 152/50 97 Room Air 01/22 0107 98.1 68 18 158/52 97 01/21 1845 65 166/50 01/21 1730 60 166/50 Intake & Output 01/22 1600 01/22 0800 01/22 0000 Intake Total 600 100 200 Output Total 900 Balance 600 100 -700 Intake, Oral 600 100 200 Output, Urine 900 Physical Exam General Appearance: Alert, Oriented X3, Cooperative, No Acute Distress Skin: No Rashes, No Breakdown HEENT: Atraumatic, PERRLA, EOMI Cardiovascular: Normal S1, Normal S2 Lungs: Clear to Auscultation, Normal Air Movement Abdomen: Soft, No Tenderness Neurological: Normal Gait, Normal Speech Extremities: No Clubbing, No Cyanosis, No Edema, Normal Pulses Vascular: Normal Pulses, Pulses Symmetrical Current Medications: Current Medications Sig/Andrey Start time Last Medication Dose Route Stop Time Status Admin Acetaminophen 650 MG Q6P PRN 01/21 1500 AC PO Acetaminophen/ 1 TAB Q6P PRN 01/21 1500 AC 01/21 Hydrocodone Bitart PO 1633 Amlodipine Besylate 5 MG DAILY 01/21 1533 AC 03/14 PO 0924 Bisacodyl 5 MG DAILY 01/22 1302 AC PO Heparin Sodium 5,000 UNIT Q8 01/21 2200 AC 01/22 (Porcine) SC 1249 Insulin Aspart 0 TIDAC 01/21 1700 AC SC Losartan Potassium 25 MG DAILY 01/22 1000 AC 01/22 PO 0923 Morphine Sulfate 2 MG Q6P PRN 01/21 1545 AC IV Nebivolol 10 MG DAILY 01/21 1534 AC 01/22 PO 0924 Omeprazole 40 MG BID 01/21 2200 AC 01/22 PO 0924 Oxybutynin Chloride 5 MG BID 01/21 2200 AC 01/22 PO 0923 Oxycodone HCl 10 MG Q6P PRN 01/21 1500 AC PO Polyethylene Glycol 17 GM DAILY 01/22 1315 AC PO Repaglinide 1 MG 1200 01/22 1315 AC PO Sucralfate 1,000 MG 4 TIMES/DAY 01/21 1800 AC 01/22 PO 1250 Trimethobenzamide HCl 200 MG TID PRN 01/21 1545 AC IM Last 24 Hrs of Lab/Zeferino Results Last 24 Hrs of Labs/Mics: Laboratory Tests 01/22/17 0714: Anion Gap 9, Estimated GFR 21 L, BUN/Creatinine Ratio 13.6, CBC w Diff NO MAN DIFF REQ, RBC 2.83 L, MCV 89.4, MCH 29.3, RDW 16.6 H, MPV 10.7 H, Gran % 70.9 , Lymphocytes % 20.7, Monocytes % 6.0, Eosinophils % 1.7, Basophils % 0.7, Absolute Granulocytes 4.7, Absolute Lymphocytes 1.4, Absolute Monocytes 0.4, Absolute Eosinophils 0.1, Absolute Basophils 0, PUBS MCHC 32.7 L Orders Radiology Findings: CT abdomen and pelvis IMPRESSION: When compared with prior examination dated 10/10/2016 there has been no significant change in the appearance of the abdomen or pelvis. Common bile duct and intrahepatic ducts are chronically dilated and there is chronic pneumobilia. The gallbladder is not definitely identified. Correlate with surgical history. Assessment/Plan Assessment: Patient is an 86-year-old female with significant past medical history of hypertension, ulcerative disease status post left femoral popliteal bypass in 2014 at [facility], GERD,peptic ulcer disease status post partial gastrectomy for PUD in [place], chronic pancreatic cysts, anxiety, diabetes, diabetic nephropathy, chronic kidney disease stage IV, osteoporosis, anxiety, PTSD, presented with chief complaints of abdominal pain in the epigastrium. Vital signs-temperature 97.9, pulse 62, respiration 18, blood pressure 152/50, SPO2 97% on room air. Plan - Epigastric pain secondary to gastritis We'll continue tablet, Protonix 40 milligrams twice a day We'll continue tablet sucralfate 100 milligrams 4 times a day Hypertensive emergency , secondary to noncompliance to medication Blood pressure - 152/50, Continue tablet losartan, nevibilol, amlodipine. Type 2 DM Diabetic diet Continue blood sugar monitoring measurement 3 times a day and at the bedtime Today, patient refused for the insulin, so we started her on Tab Repaglinide 1mg PO OD before lunch. Incontinence of the urine probably stress incontinence We'll continue oxybutynin Diet -diabetic diet DVT prophylaxis-heparin/ALP S CODE STATUS - full code Problem List: 1. Gastritis and duodenitis 2. Abdominal pain 3. Diabetes mellitus 4. Hypertension Pain Ratin Pain Location: Upper abdomen/epigastrium Pain Goal: Remain pain free Pain Plan: mild Tomorrow's Labs & Rationales: cbc,bep DVT/Prophylaxis: mechanical, pharmacological Consulting Request: Consulting Specialty: Gastroenterology LUCA ANN MD 01/22/17 1024: Attending MD Review Statement Attending Statement Attending MD Statement: examined this patient, discuss w/resident/PA/ACCOUNTANT BUDGET, agreed w/resident/PA/ACCOUNTANT BUDGET, reviewed EMR data (avail) Attending Assessment/Plan: Patient is improved today. BP is improved and is 157/50, which is acceptable for her age. Abdominal pain persists but is chronic. Will continue home medications. Anticipated discharge tomorrow on current regimen.
[2017-01-22 08:37] VITALS: BP 152/50
[2017-01-22 09:03] LABS: ABSOLUTE BASOPHIL COUNT 0 /CUMM (0.0-0.2); ABSOLUTE EOSINOPHIL COUNT 0.1 /CUMM (0.0-0.7); ABSOLUTE GRANULOCYTE CT 4.7 /CUMM (1.4-6.5); ABSOLUTE LYMPH COUNT 1.4 /CUMM (1.2-3.4); ABSOLUTE MONOCYTE COUNT 0.4 /CUMM (0.10-0.60); BASOPHIL % 0.7 % (0.0-2.0); EOSINOPHIL % 1.7 % (0-5); GRANULOCYTE % 70.9 % (42.2-75.2); HEMATOCRIT 25.3 % (37-47); MEAN CORPUSCULAR HGB 29.3 PG (27.0-31.0); MEAN CORPUSCULAR HGB CONC 32.7 G/DL (33.0-37.0); MEAN CORPUSCULAR VOLUME 89.4 FL (81.0-99.0); MEAN PLATELET VOLUME 10.7 FL (7.4-10.4); PLATELET COUNT 171 /CUMM (130-400); RBC DISTRIBUTION WIDTH 16.6 % (11.5-14.5); RED BLOOD CELL CT 2.83 /CUMM (4.20-5.40); WHITE BLOOD CELL COUNT 6.6 /CUMM (4.8-10.8)
[2017-01-22 15:30] VITALS: BP 138/50
[2017-01-23 00:45] VITALS: BP 128/48
--- NOTE | 2017-01-23 08:29 | PN- Housestaff ---
MAU CLAY,[facility] 01/23/17 0829: Subjective Follow-up For: Abdominal pain, probable gastritis Complaints: C/O OF ABD PAIN LAST NIGHT, which was difrent from the pain she came in. she doesnt want to take all medication together. Tele-Events Since Last Visit: sinus bradycardia, NSR, Hr - 57-64. Subjective: patient is seen and examined at the bed side. she was not having any pain in abdoman. Denies nausea, vomiting , diarrhea, constipation. Review of Systems Constitutional: Denies: no symptoms, see HPI, chills, diaphoresis, fever, malaise, weakness, unexplained weight loss. Cardiovascular: Denies: no symptoms, see HPI, chest pain, edema, orthopena, palpitations, peripheral edema, syncope. Respiratory: Denies: no symptoms, see HPI, cough, hemoptysis, orthopnea, short of breath, sputum production, stridor, wheezing. Gastrointestinal: Denies: abdominal pain, bloating, constipation, diarrhea, distention. Genitourinary: Denies: no symptoms. Musculoskeletal: Denies: no symptoms. Skin: Denies: no symptoms. Neurological/Psychological: Denies: no symptoms. Objective Last 24 Hrs of Vital Signs/I&O Vital Signs Date Time Temp Pulse Resp B/P Pulse O2 O2 Flow FiO2 Ox Delivery Rate 01/23 1604 97.9 64 20 140/50 97 Room Air 01/23 1007 64 112/60 01/23 1007 64 112/60 01/23 0901 64 112/60 Intake & Output 01/24 1600 01/24 0800 01/24 0000 Intake Total 420 Output Total Balance 420 Intake, Oral 420 Physical Exam General Appearance: Alert, Oriented X3, Cooperative Skin: No Rashes, No Breakdown Cardiovascular: Regular Rate, Normal S1, Normal S2 Lungs: Clear to Auscultation, Normal Air Movement Abdomen: Soft, No Tenderness Neurological: Normal Gait, Normal Speech, Strength at 5/5 X4 Ext Extremities: No Clubbing, No Cyanosis, No Edema Vascular: Normal Pulses, Pulses Symmetrical Assessment/Plan Assessment: Patient is an 86-year-old female with significant past medical history of hypertension, ulcerative disease status post left femoral popliteal bypass in 2014 at [facility], GERD,peptic ulcer disease status post partial gastrectomy for PUD in [place], chronic pancreatic cysts, anxiety, diabetes, diabetic nephropathy, chronic kidney disease stage IV, osteoporosis, anxiety, PTSD, presented with chief complaints of abdominal pain in the epigastrium. Vital signs-temperature 97.9, pulse 62, respiration 18, blood pressure 152/50, SPO2 97% on room air. Plan - Discharge today Epigastric pain secondary to gastritis We'll continue tablet, Protonix 40 milligrams twice a day We'll continue tablet sucralfate 100 milligrams 4 times a day Hypertensive emergency , secondary to noncompliance to medication Blood pressure - 152/50, Continue tablet losartan, nevibilol, amlodipine. Type 2 DM Diabetic diet Continue blood sugar monitoring measurement 3 times a day and at the bedtime Today, patient refused for the insulin, so we started her on Tab Repaglinide 1mg PO OD before lunch. Incontinence of the urine probably stress incontinence We'll continue oxybutynin Diet -diabetic diet DVT prophylaxis-heparin/ALP S CODE STATUS - full code Problem List: 1. History of partial gastrectomy 2. Hypertensive urgency 3. Right upper quadrant pain Pain Ratin Pain Location: Right upper quadrant Pain Goal: Remain pain free Pain Plan: Mild to Moderate Tomorrow's Labs & Rationales: none DVT/Prophylaxis: early ambulation low risk Consulting Request: Consulting Specialty: Gastroenterology LUCA ANN MD 01/23/17 1124: Attending MD Review Statement Attending Statement Attending MD Statement: examined this patient, discuss w/resident/PA/JUNIOR MECHANICAL ENGINEER, agreed w/resident/PA/JUNIOR MECHANICAL ENGINEER, reviewed EMR data (avail) Attending Assessment/Plan: Patient is improved today. BP is improved and is 157/50, which is acceptable for her age. Abdominal pain persists but is chronic. Will continue home medications. Patient reports some weakness and difficulty at home. Will likely require STR placement. Medically stable if bed is available for discharge.
[2017-01-23 08:30] VITALS: BP 120/50; BP 120/60
[2017-01-23 08:35] LABS: ABSOLUTE BASOPHIL COUNT 0 /CUMM (0.0-0.2); ABSOLUTE EOSINOPHIL COUNT 0 /CUMM (0.0-0.7); ABSOLUTE LYMPH COUNT 1.3 /CUMM (1.2-3.4); ABSOLUTE MONOCYTE COUNT 0.5 /CUMM (0.10-0.60); BASOPHIL % 0.5 % (0.0-2.0); EOSINOPHIL % 0.3 % (0-5); GRANULOCYTE % 73.7 % (42.2-75.2); HEMATOCRIT 25.5 % (37-47); MEAN CORPUSCULAR HGB 29.2 PG (27.0-31.0); MEAN CORPUSCULAR HGB CONC 32.7 G/DL (33.0-37.0); MEAN CORPUSCULAR VOLUME 89.3 FL (81.0-99.0); MEAN PLATELET VOLUME 10.9 FL (7.4-10.4); PLATELET COUNT 176 /CUMM (130-400); RED BLOOD CELL CT 2.85 /CUMM (4.20-5.40); WHITE BLOOD CELL COUNT 6.8 /CUMM (4.8-10.8)
--- NOTE | 2017-01-23 09:11 | Patient Discharge Instructions ---
Discharge Instructions General Discharge Information You were seen/treated for: pain in abdoman probably secondary to gastritis Special Instructions: please follow up with your PCP for further management. please follow up with your gasteroenterologist for further management. please schedule for MRCP to rule out any stone in gall bladder. Diet Continue normal diet: No Recommended Diet: Diabetic, Heart Healthy Activity Full Activity/No Limits: No (as tolerated) Acute Coronary Syndrome Inclusion Criteria At DC or during hospital stay patient has or had the following: ACS DIAGNOSIS No Discharge Core Measures Meds if any: Prescribed or Continued at Discharge Meds if any: NOT Prescribed or Continued at Discharge Congestive Heart Failure Inclusion Criteria At DC or during hospital stay patient has or had the following: CHF DIAGNOSIS No Discharge Core Measures Meds if any: Prescribed or Continued at Discharge Meds if any: NOT Prescribed or Continued at Discharge Cerebrovascular accident Inclusion Criteria At DC or during hospital stay patient has or had the following: CVA/TIA Diagnosis No Discharge Core Measures Meds if any: Prescribed or Continued at Discharge Meds if any: NOT Prescribed or Continued at Discharge Venous thromboembolism Inclusion Criteria VTE Diagnosis No VTE Type NONE VTE Confirmed by (Test) NONE Discharge Core Measures - Per Current guidelines, there needs to be overlap - treatment for the first 5 days of Warfarin therapy. - If discharged on Warfarin prior to 5 days of - overlap therapy, the patient will need to be - assessed for post discharge needs including - *Post discharge parental anticoagulation - *Warfarin and/or parental anticoagulation education - *Follow up date to check INR post discharge At least 5 days overlap therapy as Inpatient No Meds if any: Prescribed or Continued at Discharge Note: Overlap Therapy is Warfarin and Anticoagulant Meds if any: NOT Prescribed or Continued at Discharge
[2017-01-23] MEDS ORDERED: TYLENOL EXTRA500 M2 PO (11:24)
[2017-01-23 16:04] VITALS: BP 140/50
--- NOTE | 2017-01-24 09:05 | Discharge Summary ---
See Addendum Visit Information Visit Dates Admission Date: 01/21/17 Discharge Date: 01/23/2017 Hospital Course Course Attending Physician: LUCA ANN MD Primary Care Physician: AMBER CLAY,ANTONIO Hart Consulting Request: Consulting Specialty: Gastroenterology Hospital Course: Patient is an 86-year-old female with significant past medical history of hypertension, peripheral arterial disease status post left femoral popliteal bypass in 2014 at [facility], GERD,peptic ulcer disease status post partial gastrectomy in [place], chronic pancreatic cysts, anxiety, diabetes, diabetic nephropathy, chronic kidney disease stage IV, osteoporosis, anxiety, PTSD, presented with chief complaints of abdominal pain in the epigastrium. Vitals at the time of admission blood pressure 189/80, respiratory rate 18, pulse 69, afebrile saturating 97% on room air. As her blood pressure was high. She was given IV antihypertensives including labetalol and hydralazine and admitted into telemetry floor for further observation. Hypertensive urgency At the time of admission her blood pressure was 189/80 and she was given IV antihypertensives including labetalol and hydralazine to which she responded well. It seems it is due to noncompliance with the medication. Her blood work up showed creatinine 1.9, Hb 9.2.We restarted her on antihypertensive medication including amlodipine 5 mgs, Cozaar 25 milligrams, Bystolic 10 mgs PO daily. We discussed the importance of compliance and advised to follow-up with PCP for further management of blood pressure. Blood pressure at the time of discharge was 140/50. Right upper and middle quadrant pain, probably secondary to gastritis need further evaluation For the pain in upper abdomen,we did CT abdomen and pelvis which showed dilatation of common bile duct and intrahepatic duct and pneumobilia that was same as before on CT scan-10/10/2016. We started patient on IV Protonix 40 milligrams twice a day, and IV pain medication as needed .We took the gastroenterology consult and they advised for MRCP, which can be done as an outpatient. Patient responded well to medications, so we advised her to take an appointment for MRCP as an outpatient and follow Dr. Farfan/Chas for further management of pain in abdoman. Anemia of chronic disease - Hemoglobin was 9.2, MCV 89.3, MCH-29.2, says normocytic normochromic anemia, probably secondary to diabetic nephropathy. Advise to follow-up with PCP for further management. Allergies: Coded Allergies: NO KNOWN ALLERGIES (08/25/16) Disposition Summary Disposition Principal Diagnosis: Pain abdomen , probably secondary to gastritis Hypertensive urgency Additional Diagnosis: Hypertension Peripheral arterial disease, status post left femoral bypass in 2015 at [facility] [place] [place] Peptic ulcer disease status post partial gastrectomy Chronic pancreatic cyst Status post cholecystectomy Type 2 diabetes Chronic kidney disease probably secondary to diabetes Osteoporosis Anxiety PTSD Vitamin D deficiency Anemia Discharge Disposition: home health services Discharge Instructions General Discharge Information Code Status: Full Code Patient's Diet: Diabetic diet Patient's Activity: As tolerated Take all fall precautions Follow-Up Instructions/Appts: Patient due for MRCP to rule out residual stone at the site of gallbladder or CBD Please follow-up with the shear grinder operator if there is any abdominal pain , and within a week of discharge Days. Follow-up with your PCP within a week of discharge for further management of blood pressure Medications at Discharge Discharge Medications: Continue taking these medications: Repaglinide (Repaglinide) 1 MG TABLET 1 Tablet ORAL DAILY Qty = 30 Comments: Last Taken: 01/22/17 Time: 4PM Nebivolol HCl (Bystolic) 10 MG TABLET 1 Tablet ORAL DAILY Qty = 30 Comments: Last Taken: 01/23/17 Time: 9AM Losartan Potassium (Losartan Potassium) 25 MG TABLET 1 Tablet ORAL DAILY Qty = 30 Comments: Last Taken: 01/23/17 Time: 10AM Amlodipine Besylate (Amlodipine Besylate) 5 MG TABLET 1 Tablet ORAL DAILY Qty = 90 Comments: Last Taken: 01/23/17 Time: 10 AM Sucralfate (Carafate) 1 GRAM TABLET 1,000 Milligram ORAL 4 TIMES A DAY Days = 30 Instructions: Please take one tablet 30 minutes after your breakfast, lunch and dinner. Take one tablet at bed time. You can Mix this tablet with 8 oz H2O and disolve. Comments: Last Taken: 01/22/17 Time: 4PM Omeprazole (Omeprazole) 40 MG CAPSULE.DR 1 Tablet ORAL TWICE DAILY Qty = 30 Comments: Last Taken: 01/22/17 Time: 9AM Oxybutynin Chloride (Oxybutynin Chloride) 5 MG TABLET 1 Tablet ORAL TWICE DAILY Qty = 60 Comments: Last Taken: 01/23/17 Time: 9AM Start taking the following new medications: Acetaminophen (Tylenol Extra Strength) 500 MG TABLET 1 Tablet ORAL EVERY 6 HOURS NEEDED as needed for pain in abd Qty = 10 No Refills Comments: NOT GIVEN IN THE HOSPITAL Copies To: MABER CLAY,ANTONIO aHrt; KENNEDY CLAY,INES Armijo; CHAS CLAY,MAYA Christensen MD Review Statement Documenting Attending: LUCA ANN MD
== END 2017-01-23 19:50 | disposition home health service (06) | DRG 392 ==
LOC: ENRESERVTM → ENRESERVDT → ERH 08:32 → ERHI 13:04 → ENPENDDIS 13:04 → 1NO 13:04
PROVIDERS: Internal Medicine Infectious Disease; Physician Assistant; ADMIT Internal Medicine
DX: K29.70 Gastritis, unspecified, without bleeding (principal); N18.4 Chronic kidney disease, stage 4 (severe); E11.22 Type 2 diabetes mellitus with diabetic chronic kidney disease; K86.2 Cyst of pancreas; I73.9 Peripheral vascular disease, unspecified; I16.1 Hypertensive emergency; K21.9 Gastro-esophageal reflux disease without esophagitis; I12.9 Hypertensive chronic kidney disease with stage 1 through stage 4 chronic kidney disease, or unspecified chronic kidney disease; M81.0 Age-related osteoporosis without current pathological fracture; R32 Unspecified urinary incontinence; K29.80 Duodenitis without bleeding; F41.9 Anxiety disorder, unspecified
CPT/HCPCS: 1NSP; 36415; 74176; 81001; 82436; 87086; 93005; 93010; 96361; 96365; 96375; 96376; 97116-GO; 97161-GP; 97530-GO; 99291; J0131; J0360; J1644; J3250